=== PATIENT | male | born 1965 ===

== ENCOUNTER 2016-12-14 15:51 | Emergency (ER) | payer OTHER ==
[2016-12-14] MEDS ORDERED: Fluorescein 1 mg Ophthalmic Strip OU ONE (17:40)
[2016-12-14] MEDS ORDERED: Tobramycin 0.3% OPH OINT OU STA (17:41)
--- NOTE | 2016-12-14 17:41 | C.PDOC ---
History Of Present Illness 51 yr old M c/o left eye pain x 2 days that started after he was cleaning wood and dust got into his eye. (+)pain, watery d/c. No change of vision. Time Seen by Provider: 12/14/16 17:37 Chief Complaint (Nursing): Eye Problem History Per: Patient History/Exam Limitations: language barrier (translated from hungarian by sara larson) Onset/Duration Of Symptoms: Days (2) Current Symptoms Are (Timing): Still Present Severity: Moderate Pain Scale Rating Of: 5 Quality: Sharp Associated Symptoms: Pain, Discharge From Eye Past Medical History Reviewed: Historical Data, Nursing Documentation, Vital Signs Vital Signs: Last Vital Signs Temp 97.9 F 12/14/16 15:59 Pulse 69 12/14/16 15:59 Resp 20 12/14/16 15:59 BP 174/93 H 12/14/16 15:59 Pulse Ox 99 12/14/16 18:29 Family History: States: No Known Family Hx - Social History Hx Alcohol Use: No Hx Substance Use: No - Immunization History Hx Tetanus Toxoid Vaccination: No Hx Influenza Vaccination: No Hx Pneumococcal Vaccination: No Review Of Systems Except As Marked, All Systems Reviewed And Found Negative. Eyes: Positive for: Pain, Conjunctivae Inflammation, Redness. Negative for: Vision Change ENT: Negative for: Ear Pain Skin: Negative for: Rash Physical Exam - Physical Exam Appears: Well, Non-toxic, No Acute Distress Skin: Normal Color, Warm, Dry Head: Atraumatic, Normacephalic Eye(s): bilateral: PERRL, EOMI, right: Normal Inspection, left: Other ( conjunctival injections, healing corneal abrasion, no FB seen, eyelids inverted. ) ED Course And Treatment O2 Sat by Pulse Oximetry: 99 Pulse Ox Interpretation: Normal Disposition Counseled Patient/Family Regarding: Studies Performed, Diagnosis, Need For Followup, Rx Given - Disposition Referrals: Ricki Horta MD [Staff Provider] - Disposition: HOME/ ROUTINE Disposition Time: 18:26 Condition: STABLE Additional Instructions: FOLLOW UP WITH [facility] DRAWING OPERATOR ON FRIDAY WITHOUT FAIL. IF SYMPTOMS GET WORSE OR ANY NEW CONCERNING SYMPTOMS DEVELOP RETURN TO ED. Prescriptions: Tobramycin 0.3% [Tobrex 0.3% Ophth Oint] 1 apful OS BID #1 tube Instructions: Corneal Abrasion (ED) Forms: [facility] (Maori), Gen Discharge Inst Albanian Print Language: AMHARIC - Clinical Impression Clinical Impression: Corneal abrasion
[2016-12-14] MEDS ORDERED: Fluorescein 1 mg Ophthalmic Strip ONE (17:47)
[2016-12-14] MEDS ORDERED: Tobramycin 0.3% OPH OINT ONE (17:48)
[2016-12-14 18:41] VITALS: BP 155/90; PULSE 75; RESP 16; TEMP 98.2; O2SAT 100
== END 2016-12-14 18:40 | disposition home or self-care (01) ==
LOC: C.ER 15:51
DX: S05.02XA Injury of conjunctiva and corneal abrasion without foreign body, left eye, initial encounter (principal); X58.XXXA Exposure to other specified factors, initial encounter

== ENCOUNTER 2017-02-01 12:15 | Emergency (ER) | payer OTHER ==
[2017-02-01 12:36] VITALS: BMI 25.4
--- NOTE | 2017-02-01 13:20 | C.PDOC ---
History Of Present Illness Rodney Menjivar is a 51 year old male who presents with right shoulder pain. He reports that while changing a light bulb 2 weeks ago, he fell and landed on the right shoulder. He reports having pain since. No x-rays were taken post fall. He states the pain radiates down to the right arm. He has full ROM with pain. Denies any head trauma or loss of consciousness during the fall. PMD: Dr. Omero Jack Time Seen by Provider: 02/01/17 12:48 Chief Complaint (Nursing): Upper Extremity Problem/Injury History Per: Patient History/Exam Limitations: no limitations Onset/Duration Of Symptoms: Days (x 2 weeks) Past Medical History Reviewed: Historical Data, Nursing Documentation, Vital Signs Vital Signs: Last Vital Signs Temp 98.5 F 02/01/17 14:32 Pulse 64 02/01/17 14:32 Resp 18 02/01/17 14:32 BP 153/91 H 02/01/17 14:32 Pulse Ox 98 02/01/17 14:48 - Medical History PMH: No Chronic Diseases Other Surgeries: Renal calculi procedure Family History: States: No Known Family Hx - Social History Hx Alcohol Use: No Hx Substance Use: No - Immunization History Hx Tetanus Toxoid Vaccination: No Hx Influenza Vaccination: No Hx Pneumococcal Vaccination: No Review Of Systems Except As Marked, All Systems Reviewed And Found Negative. Musculoskeletal: Positive for: Shoulder Pain (Right) Neurological: Negative for: Weakness, Numbness Physical Exam - Physical Exam Appears: Non-toxic, No Acute Distress Skin: Normal Color, Warm, Dry Head: Atraumatic, Normacephalic Eye(s): bilateral: Normal Inspection, PERRL, EOMI Oral Mucosa: Moist Neck: Normal, Normal ROM Extremity: Normal ROM (with pain), Tenderness (to palpation of right shoulder), Capillary Refill (< 2 sec), No Deformity, No Swelling Pulses: Left Radial: Normal, Right Radial: Normal Neurological/Psych: Oriented x3, Normal Speech, Normal Motor, Normal Sensation ED Course And Treatment O2 Sat by Pulse Oximetry: 98 (RA) Pulse Ox Interpretation: Normal - Other Rad X-Ray Right Shoulder X-Ray: Interpreted by Me, Viewed By Me Interpretation: No fracture or dislocation Medical Decision Making Medical Decision Making: Time: 13:20 Initial Impression: 51 year old male with right shoulder pain Initial Plan: * Treated with Ibuprofen 600 mg in the ED * X-Ray Right Shoulder Preliminary X-Ray is negative, as read by me. Patient is stable for discharge home and will follow up with orthopedist outpatient for further evaluation. There is agreement to discharge plan. Return is symptoms worsen or persist. Disposition Counseled Patient/Family Regarding: Studies Performed, Diagnosis, Need For Followup, Rx Given - Disposition Referrals: Billy Mckinley III, MD [Staff Provider] - [facility]] [facility] [Outside] Disposition: HOME/ ROUTINE Disposition Time: 14:21 Condition: STABLE Additional Instructions: FOLLOW UP IN CLINIC AND WITH ORTHOPAEDIST NEXT WEEK FOR RE-EVALUATION AND OFFICIAL XRAY REPORT. IF SYMPTOMS GET WORSE OR ANY NEW CONCERNING SYMPTOMS DEVELOP RETURN TO ED. Prescriptions: Ibuprofen [Motrin Tab] 1 tab PO Q6H PRN #15 tab PRN Reason: Pain, Moderate (4-7) Instructions: Shoulder Pain (ED) Forms: [facility] (Turkish), Gen Discharge Inst Luxembourgish - Clinical Impression Clinical Impression: Shoulder injury - PA / MOLD CARRIER / Resident Statement MD/DO has reviewed & agrees with the documentation as recorded. - Scribe Statement The provider has reviewed the documentation as recorded by the Scribguille Mercedes All medical record entries made by the Scribe were at my direction and personally dictated by me. I have reviewed the chart and agree that the record accurately reflects my personal performance of the history, physical exam, medical decision making, and the department course for this patient. I have also personally directed, reviewed, and agree with the discharge instructions and disposition.
[2017-02-01 14:33] VITALS: BP 153/91; PULSE 64; RESP 18; TEMP 98.5
[2017-02-01 14:44] VITALS: O2SAT 98
--- NOTE | 2017-02-01 18:12 | RAD ---
PROCEDURE: Radiographs of the Right Shoulder HISTORY: PAIN COMPARISON: No prior. FINDINGS: BONES: No acute fracture or destructive bony lesion identified. JOINTS: Normal. Glenohumeral and acromioclavicular joints preserved. No osteoarthritis. SOFT TISSUES: Normal. OTHER FINDINGS: None. IMPRESSION: Unremarkable radiographs of the right shoulder.
== END 2017-02-01 14:34 | disposition home or self-care (01) ==
LOC: C.ER 12:15
DX: S49.91XA Unspecified injury of right shoulder and upper arm, initial encounter (principal); W19.XXXA Unspecified fall, initial encounter